=== PATIENT | male | born 1960 | race African-American/Black ===

== ENCOUNTER 2018-09-28 14:46 | Emergency (ER) | payer OTHER ==
[~2018-09-28] VITALS: Ht 172.7 cm; Wt 76.3 kg
[2018-09-28 15:06] LABS: BASOPHILS % (AUTO) 0.5 % (0.0-2.0); EOSINOPHILS % (AUTO) 0.6 % (1.0-6.0); HEMATOCRIT 39.8 % (41-53); HEMOGLOBIN 13.2 g/dL (13.5-17.5); LYMPHOCYTES # (AUTO) 1.1 K/uL (1.0-4.8); LYMPHOCYTES % (AUTO) 15.7 % (22.0-44.0); MEAN CORPUSCULAR HGB CONC 33.1 G/dL (31.0-37.0); MEAN CORPUSCULAR VOLUME 94 fL (80-100); MONOCYTES # (AUTO) 0.5 K/uL (0.1-1.0); MONOCYTES % (AUTO) 6.7 % (2.0-9.0); NEUTROPHILS # (AUTO) 5.6 K/uL (1.8-7.7); NEUTROPHILS % (AUTO) 76.5 % (40.0-70.0); PLATELET COUNT (AUTO) 235 K/uL (150-450); RED BLOOD CELL COUNT(AUTO) 4.25 MIL/uL (4.50-5.90); RED CELL DISTRIBUTION WIDTH 13.9 % (11.5-14.5)
[2018-09-28] MEDS ORDERED: ALTEPLASE PER STROKE PROTOCOL CLINICAL ONE (15:15)
[2018-09-28 15:16] LABS: INR 1.1 (0.9-1.1); PROTHROMBIN TIME 11.6 SEC (9.4-11.6)
[2018-09-28] MEDS ORDERED: CARB-102 PO (15:19)
[2018-09-28 15:24] LABS: CALCIUM, TOTAL 8.3 mg/dL (8.8-10.5); CREATININE 1.55 mg/dL (0.60-1.30); POTASSIUM 3.9 mmol/L (3.5-5.1)
[2018-09-28 15:26] LABS: ALBUMIN 3.3 g/dL (3.4-5.0); BILIRUBIN,TOTAL 0.5 mg/dL (0.1-1.0); TOTAL PROTEIN, SERUM 6.7 g/dL (6.4-8.2)
[2018-09-28] MEDS ORDERED: ALTEPLASE IV ONE ×2 (15:30)
[2018-09-28] MEDS ORDERED: WATER FOR INJECTION STERILE IV ONE ×2 (15:30)
[2018-09-28] MEDS ORDERED: ASPIRIN 81 MG CHEWABLE TABLET PO ONE (16:00)
[2018-09-28] MEDS ORDERED: IOVERSOL 350 MG/ML 100 ML VIAL ONE (16:58)
[2018-09-28] MEDS ORDERED: SODIUM CHLORIDE 0.9% 100 ML ONE (16:58)
[2018-09-28 17:10] VITALS: BP 148/80
== END 2018-09-28 17:15 | disposition short-term general hospital (02) ==
LOC: EMS 14:47
DX: G45.9 Transient cerebral ischemic attack, unspecified (principal)
CPT/HCPCS: 36415; 70450; 70496; 71045; 80053; 84484; 85025; 85610; 93005; 99291; J7050; Q9967; J2997

== ENCOUNTER 2023-12-05 11:32 | Emergency (ER) | payer OTHER ==
[~2023-12-05] VITALS: Ht 172.7 cm; Wt 89.9 kg
[~2023-12-05 11:32] MED LIST: CARB-102 PO
[2023-12-05 11:50] VITALS: TEMP 98.9
[2023-12-05] MEDS ORDERED: IOHEXOL 350 MG/ML 100 ML VIAL ONE (12:09)
[2023-12-05] MEDS ORDERED: SODIUM CHLORIDE 0.9% 100 ML ONE (12:09)
[2023-12-05] MEDS ORDERED: 0.9% SODIUM CHLORIDE 10 ML SYRINGE IVP ONE (12:09)
[2023-12-05 12:14] LABS: BASOPHILS % (AUTO) 0.7 % (0.0-2.0); EOSINOPHILS % (AUTO) 3.6 % (1.0-6.0); HEMATOCRIT 40.2 % (41-53); LYMPHOCYTES # (AUTO) 1.3 K/uL (1.0-4.8); LYMPHOCYTES % (AUTO) 20.2 % (22.0-44.0); MEAN CORPUSCULAR HGB CONC 32.4 G/dL (31.0-37.0); MEAN CORPUSCULAR VOLUME 96 fL (80-100); MONOCYTES # (AUTO) 0.5 K/uL (0.1-1.0); MONOCYTES % (AUTO) 8.3 % (2.0-9.0); NEUTROPHILS # (AUTO) 4.3 K/uL (1.8-7.7); NEUTROPHILS % (AUTO) 67.2 % (40.0-70.0); PLATELET COUNT (AUTO) 201 K/uL (150-450); RED BLOOD CELL COUNT(AUTO) 4.21 MIL/uL (4.50-5.90); WHITE BLOOD COUNT (AUTO) 6.3 K/uL (4.5-11.0)
[2023-12-05 12:25] LABS: ANION GAP 5 mmol/L (8-16); CARBON DIOXIDE 28 mmol/L (22-29); CHLORIDE 106 mmol/L (98-107); GLOMERULAR FILTR. RATE CALC > 60 mL/min (>60); GLUCOSE,RANDOM 114 mg/dL (70-110); INR 1.2 (0.9-1.1); PROTHROMBIN TIME 12.2 SEC (9.4-11.6); SODIUM SERUM 138 mmol/L (136-145); UREA NITROGEN, BLOOD 19 mg/dL (7-18)
[2023-12-05 12:32] LABS: ALANINE AMINOTRANSFERASE 10 U/L (12-78); ALBUMIN 3.1 g/dL (3.4-5.0); ALKALINE PHOSPHATASE 63 U/L (46-116); ASPARTATE AMINOTRANSFERASE 25 U/L (15-37); BILIRUBIN,TOTAL 0.5 mg/dL (0.1-1.0); HDL CHOLESTEROL 51 mg/dL (40-60); TOTAL PROTEIN, SERUM 6.8 g/dL (6.4-8.2); TRIGLYCERIDES 31 mg/dL (15-150)
[2023-12-05 12:33] LABS: TROPONIN I-HIGH SENSITIVITY 7 ng/L (<76)
[2023-12-05] MEDS: ASPIRIN 325 MG TABLET PO ONE (13:12)
[2023-12-05 13:52] LABS: CHOL/HDL RATIO 1.7 (4.2-7.3); CHOLESTEROL 88 mg/dL (131-200); LDL CHOL (CALC.) 31 mg/dL (0-130)
[2023-12-05 14:45] VITALS: BP 154/83; PULSE 76; RESP 16
== END 2023-12-05 15:05 | disposition short-term general hospital (02) ==
LOC: EMS 11:34
DX: G45.9 Transient cerebral ischemic attack, unspecified (principal); R41.82 Altered mental status, unspecified; G20.A1 Parkinson's disease without dyskinesia, without mention of fluctuations; R53.1 Weakness
CPT/HCPCS: 99291; 70496; 71045; 80061; 80053; 84484; 85025; 85610; 36415; 70498; 82948; 93005; 70450; Q9967; J7050

== ENCOUNTER 2024-10-24 13:24 | Inpatient (IN) | payer OTHER ==
[~2024-10-24] VITALS: Ht 177.8 cm; Wt 79.6 kg
[2024-10-24 13:28] VITALS: PULSE 89; RESP 20; O2SAT 98
[2024-10-24] MEDS ORDERED: PROPOFOL 1000 MG/ISO-OSM 100 ML ONE (13:30)
[2024-10-24] MEDS ORDERED: PHENYLEPHRINE HCL IN 0.9% NACL 400 MCG/10 ML SYRINGE IVP ONE (13:42)
[2024-10-24] MEDS ORDERED: NOREPINEPHRINE 8 MG/0.9 % NACL 250 ML IV ONE (13:42)
[2024-10-24] MEDS ORDERED: VASOPRESSIN 40 UNITS in DEXTROSE 5%-WATER 98 ML IV PRN (14:00)
[2024-10-24] MEDS ORDERED: PHENYLEPHRINE 200 MG/D5%-WATER 250 ML IV PRN (14:00)
[2024-10-24] MEDS: NOREPINEPHRINE 8 MG/0.9 % NACL 250 ML IV PRN (14:14)
[2024-10-24] MEDS: PROPOFOL 1000 MG/ISO-OSM 100 ML IV PRN (14:14)
[2024-10-24 14:18] LABS: BASOPHILS % (AUTO) 0.1 % (0.0-2.0); EOSINOPHILS % (AUTO) 0.9 % (1.0-6.0); HEMATOCRIT 40.1 % (41-53); HEMOGLOBIN 12.9 g/dL (13.5-17.5); LYMPHOCYTES # (AUTO) 3.2 K/uL (1.0-4.8); LYMPHOCYTES % (AUTO) 19.5 % (22.0-44.0); MEAN CORPUSCULAR HEMOGLOBIN 31.2 pg (26.0-34.0); MEAN CORPUSCULAR HGB CONC 32.3 G/dL (31.0-37.0); MEAN CORPUSCULAR VOLUME 97 fL (80-100); MONOCYTES # (AUTO) 0.3 K/uL (0.1-1.0); MONOCYTES % (AUTO) 1.6 % (2.0-9.0); NEUTROPHILS # (AUTO) 12.6 K/uL (1.8-7.7); NEUTROPHILS % (AUTO) 77.9 % (40.0-70.0); PLATELET COUNT (AUTO) 185 K/uL (150-450); RED BLOOD CELL COUNT(AUTO) 4.14 MIL/uL (4.50-5.90); RED CELL DISTRIBUTION WIDTH 14.6 % (11.5-14.5); WHITE BLOOD COUNT (AUTO) 16.2 K/uL (4.5-11.0)
[2024-10-24 14:28] LABS: ABG BASE EXCESS -10.6 mmol/L (-2.0-3.0); ABG HCO3 16.5 mmol/L (21.0-28.0); ABG PCO2 35 mmHg (32.0-48.0); ABG PH 7.279 (7.350-7.450); ALLEN TEST, BLOOD GAS Positive; SITE, BLOOD GAS LFT RADIAL; SOURCE, BLOOD GAS ARTERIAL
[2024-10-24 14:28] LABS: ANION GAP 10 mmol/L (8-16); CALCIUM, TOTAL 7.4 mg/dL (8.8-10.5); CARBON DIOXIDE 22 mmol/L (22-29); CHLORIDE 110 mmol/L (98-107); CREATININE 1.87 mg/dL (0.60-1.30); GLOMERULAR FILTR. RATE CALC 44 mL/min (>60); GLUCOSE,RANDOM 173 mg/dL (70-110); SODIUM SERUM 142 mmol/L (136-145); UREA NITROGEN, BLOOD 21 mg/dL (7-18)
[2024-10-24 14:29] LABS: ABG A-A DIFF O2 162.7 mmHg (10-20.0); ABG CARBOXYHEMOGLOBIN 0.6 % (0.5-1.5); ABG METHEMOGLOBIN 0.8 % (0.0-1.5); ABG OXYGEN CONTENT 20.5 mL/dL (15.0-23.0); ABG OXYGEN SATURATION 99.7 % (94.0-98.0); ABG OXYHEMOGLOBIN 98.3 % (94.0-98.0); ABG TOTAL HEMOGLOBIN 13.7 G/dL (13.5-17.5); O2 DEVICE,BLOOD GAS VENTILATOR (ROOM AIR); PEEP,BG 5 cm H2O; VT, ABG 450 ml
[2024-10-24 14:33] LABS: PROTHROMBIN TIME 12.5 SEC (9.4-11.6)
[2024-10-24 14:34] LABS: ALBUMIN 3.2 g/dL (3.4-5.0); BILIRUBIN,TOTAL 0.5 mg/dL (0.1-1.0); TOTAL PROTEIN, SERUM 6.2 g/dL (6.4-8.2)
[2024-10-24 14:36] LABS: TROPONIN I-HIGH SENSITIVITY 29 ng/L (<76)
[2024-10-24 14:42] LABS: BILIRUBIN,DIRECT 0.1 mg/dL (0.00-0.20)
[2024-10-24] MEDS: KETAMINE HCL 500 MG in DEXTROSE 5%-WATER 490 ML IV PRN (14:57)
[2024-10-24] MEDS: SODIUM BICARBONATE 100 MEQ in DEXTROSE 5%-0.45% SODIUM CHL 1,000 ML IV ONE (14:57)
[2024-10-24 15:00] LABS: ALCOHOL, URINE DRUG SCREEN NEGATIVE (NEGATIVE); AMPHET/METH SCREEN,URINE NEGATIVE (NEGATIVE); BARBITURATE SCREEN, URINE NEGATIVE (NEGATIVE); BENZODIAZEPINES SCREEN,URINE NEGATIVE (NEGATIVE); CANNABINOID SCREEN,URINE NEGATIVE (NEGATIVE); COCAINE SCREEN,URINE NEGATIVE (NEGATIVE); METHADONE SCREEN, URINE NEGATIVE (NEGATIVE); OPIATE SCREEN,URINE NEGATIVE (NEGATIVE); PHENCYCLIDINE SCREEN,URINE NEGATIVE (NEGATIVE)
[2024-10-24] MEDS ORDERED: MORPHINE SULFATE 2 MG/ML SYRINGE IVP PRN (15:30)
[2024-10-24] MEDS ORDERED: HYDROCODONE/ACETAMINOPHEN 5-325 MG TABLET PO PRN (15:30)
[2024-10-24] MEDS ORDERED: BISACODYL 10 MG RECTAL RECTAL SUPPOSITORY PR PRN (15:30)
[2024-10-24] MEDS ORDERED: ZOLPIDEM TARTRATE 5 MG TABLET PO PRN (15:30)
[2024-10-24] MEDS ORDERED: MAGNESIUM HYDROXIDE SUSPENSION 30 ML UDCUP PO PRN (15:30)
[2024-10-24] MEDS ORDERED: ONDANSETRON HCL 4 MG/2 ML VIAL IVP PRN (15:30)
[2024-10-24] MEDS: *CLINICAL-LEVOFLOXACIN IVPB DOSING CLINICAL ONE (15:33)
[2024-10-24 16:25] VITALS: PULSE 100; RESP 37; O2SAT 93
[2024-10-24] MEDS ORDERED: IOHEXOL 350 MG/ML 100 ML VIAL ONE (16:47)
[2024-10-24] MEDS ORDERED: 0.9% SODIUM CHLORIDE 10 ML SYRINGE IVP ONE (16:47)
[2024-10-24] MEDS ORDERED: SODIUM CHLORIDE 0.9% 100 ML ONE (16:48)
[2024-10-24] MEDS: LEVOFLOXACIN 750 MG/D5% WATER 150 ML IV SCH (17:47)
[2024-10-24] MEDS: HEPARIN SODIUM,PORCINE 5,000 UNITS/ML VIAL SQ SCH (17:47)
[2024-10-24 19:20] VITALS: PULSE 87; RESP 33; O2SAT 100
[2024-10-24 19:50] VITALS: PULSE 87; RESP 33; O2SAT 100
[2024-10-24] MEDS: DOCUSATE SODIUM 100 MG CAPSULE PO SCH (20:05)
[2024-10-24 22:20] VITALS: PULSE 75; RESP 32; O2SAT 100
[2024-10-25] VITALS (13 sets, daily range): BP systolic 100–145; BP diastolic 72–95; PULSE 76–87; RESP 21–34; TEMP 93.3–94.4; O2SAT 95–99
[2024-10-25 01:26] LABS: ALLEN TEST, BLOOD GAS Positive; SITE, BLOOD GAS RT RADIAL; TEMPERATURE, FAHRENHEIT, BG 93.7 FAHREN (96.0-98.6)
[2024-10-25 01:27] LABS: ABG BASE EXCESS 3.2 mmol/L (-2.0-3.0); ABG HCO3 22.1 mmol/L (21.0-28.0); ABG PCO2 34 mmHg (32.0-48.0); ABG PH 7.413 (7.350-7.450); ABG TOTAL HEMOGLOBIN 14.7 G/dL (13.5-17.5); PO2, ARTERIAL BG 66.2 mmHg (83.0-108.0)
[2024-10-25 01:28] LABS: ABG CARBOXYHEMOGLOBIN 0.7 % (0.5-1.5); ABG METHEMOGLOBIN 0.6 % (0.0-1.5); ABG OXYGEN CONTENT 19.5 mL/dL (15.0-23.0); ABG OXYHEMOGLOBIN 94.2 % (94.0-98.0)
[2024-10-25 01:29] LABS: ABG OXYGEN SATURATION 95.4 % (94.0-98.0); O2 DEVICE,BLOOD GAS VENT (ROOM AIR); PEEP,BG 5 cm H2O; VT, ABG 450 ml
[2024-10-25 01:32] LABS: SOURCE, BLOOD GAS ARTERIAL
[2024-10-25 02:03] LABS: ANION GAP 4 mmol/L (8-16); CALCIUM, TOTAL 7.2 mg/dL (8.8-10.5); CARBON DIOXIDE 26 mmol/L (22-29); CHLORIDE 109 mmol/L (98-107); CREATININE 1.01 mg/dL (0.60-1.30); GLOMERULAR FILTR. RATE CALC > 60 mL/min (>60); GLUCOSE,RANDOM 145 mg/dL (70-110); POTASSIUM 3.7 mmol/L (3.5-5.1); SODIUM SERUM 139 mmol/L (136-145); UREA NITROGEN, BLOOD 23 mg/dL (7-18)
[2024-10-25 02:08] LABS: ALANINE AMINOTRANSFERASE 43 U/L (12-78); ALKALINE PHOSPHATASE 103 U/L (46-116); ASPARTATE AMINOTRANSFERASE 148 U/L (15-37); BILIRUBIN,TOTAL 0.5 mg/dL (0.1-1.0); PHOSPHORUS 2.5 mg/dL (2.5-4.9)
[2024-10-25] MEDS: FentaNYL CIT 1000MCG/0.9% NACL 100 ML IV PRN (05:30)
[2024-10-25 05:54] LABS: BASOPHILS % (AUTO) 0.2 % (0.0-2.0); EOSINOPHILS % (AUTO) 0 % (1.0-6.0); HEMATOCRIT 41.6 % (41-53); HEMOGLOBIN 13.8 g/dL (13.5-17.5); LYMPHOCYTES # (AUTO) 0.3 K/uL (1.0-4.8); LYMPHOCYTES % (AUTO) 4.6 % (22.0-44.0); MEAN CORPUSCULAR HEMOGLOBIN 31.6 pg (26.0-34.0); MEAN CORPUSCULAR HGB CONC 33.2 G/dL (31.0-37.0); MEAN CORPUSCULAR VOLUME 95 fL (80-100); MONOCYTES # (AUTO) 0.3 K/uL (0.1-1.0); MONOCYTES % (AUTO) 4.8 % (2.0-9.0); NEUTROPHILS # (AUTO) 5.6 K/uL (1.8-7.7); RED BLOOD CELL COUNT(AUTO) 4.37 MIL/uL (4.50-5.90); RED CELL DISTRIBUTION WIDTH 15.1 % (11.5-14.5); WHITE BLOOD COUNT (AUTO) 6.2 K/uL (4.5-11.0)
[2024-10-25 06:05] LABS: ANION GAP 7 mmol/L (8-16); CALCIUM, TOTAL 7.5 mg/dL (8.8-10.5); CARBON DIOXIDE 28 mmol/L (22-29); CHLORIDE 106 mmol/L (98-107); CREATININE 1.13 mg/dL (0.60-1.30); GLOMERULAR FILTR. RATE CALC > 60 mL/min (>60); GLUCOSE,RANDOM 134 mg/dL (70-110); POTASSIUM 3.7 mmol/L (3.5-5.1); SODIUM SERUM 141 mmol/L (136-145); UREA NITROGEN, BLOOD 22 mg/dL (7-18)
[2024-10-25 06:09] LABS: NEUTROPHILS % (AUTO) 90.4 % (40.0-70.0)
[2024-10-25 06:17] LABS: TROPONIN I-HIGH SENSITIVITY 650 ng/L (<76)
[2024-10-25] MEDS: ACETAMINOPHEN 325 MG TABLET PO PRN (06:32)
[2024-10-25 08:14] LABS: ABG BASE EXCESS -1.9 mmol/L (-2.0-3.0); ABG PCO2 38 mmHg (32.0-48.0); ABG PH 7.401 (7.350-7.450); ABG TOTAL HEMOGLOBIN 14.5 G/dL (13.5-17.5); ALLEN TEST, BLOOD GAS Positive; PO2, ARTERIAL BG 78.3 mmHg (83.0-108.0); SITE, BLOOD GAS RT RADIAL; SOURCE, BLOOD GAS ARTERIAL; TEMPERATURE, FAHRENHEIT, BG 94.4 FAHREN (96.0-98.6)
[2024-10-25 08:15] LABS: ABG CARBOXYHEMOGLOBIN 0.5 % (0.5-1.5); ABG METHEMOGLOBIN 0.3 % (0.0-1.5); ABG OXYGEN CONTENT 19.6 mL/dL (15.0-23.0); ABG OXYGEN SATURATION 96.6 % (94.0-98.0); ABG OXYHEMOGLOBIN 95.8 % (94.0-98.0); O2 DEVICE,BLOOD GAS VENTILATOR (ROOM AIR); PEEP,BG 5 cm H2O; SPONTANEOUS VT, BG 423 ml; VT, ABG 450 ml
[2024-10-25 08:16] LABS: PLATELET COUNT (AUTO) 152 K/uL (150-450)
[2024-10-25 08:45] LABS: ALANINE AMINOTRANSFERASE 46 U/L (12-78); ALBUMIN 2.8 g/dL (3.4-5.0); ALKALINE PHOSPHATASE 100 U/L (46-116); ANION GAP 5 mmol/L (8-16); ASPARTATE AMINOTRANSFERASE 125 U/L (15-37); BILIRUBIN,TOTAL 0.5 mg/dL (0.1-1.0); CALCIUM, TOTAL 7.4 mg/dL (8.8-10.5); CARBON DIOXIDE 25 mmol/L (22-29); CHLORIDE 109 mmol/L (98-107); CREATININE 0.97 mg/dL (0.60-1.30); GLOMERULAR FILTR. RATE CALC > 60 mL/min (>60); GLUCOSE,RANDOM 123 mg/dL (70-110); PHOSPHORUS 2.4 mg/dL (2.5-4.9); POTASSIUM 3.7 mmol/L (3.5-5.1); SODIUM SERUM 139 mmol/L (136-145); UREA NITROGEN, BLOOD 21 mg/dL (7-18)
[2024-10-25] MEDS: ETHYL ALCOHOL 62% ANTISEPTIC NASAL SANITIZER 0.6 ML AMPUL NASAL SCH (09:04)
[2024-10-25] MEDS: PANTOPRAZOLE SODIUM 40 MG DR TABLET PO SCH (09:21)
[2024-10-25] MEDS ORDERED: DONE-52 PO (10:49)
[2024-10-25] MEDS ORDERED: LOVA20TA73 PO (10:49)
[2024-10-25] MEDS ORDERED: LEVO50 PO (10:49)
[2024-10-25] MEDS ORDERED: MIDO5TAB29 PO (10:49)
[2024-10-25] MEDS ORDERED: LEVE-71 PO (10:49)
[2024-10-25] MEDS ORDERED: DONE-51 PO (10:49)
[2024-10-25] MEDS ORDERED: CARB1CAP PO (10:49)
[2024-10-25] MEDS ORDERED: DROX200C2 PO (10:49)
[2024-10-25] MEDS ORDERED: SERT-158 PO (10:49)
[2024-10-25] MEDS ORDERED: OXCA300T70 PO (10:49)
[2024-10-25] MEDS ORDERED: SERT-162 PO (10:49)
[2024-10-25] MEDS ORDERED: MELO-107 PO (10:49)
[2024-10-25 12:02] LABS: PH, GASTRIC 3.5
[2024-10-25] MEDS ORDERED: SODIUM CHLORIDE 0.9% 1,000 ML ONE (12:02)
[2024-10-25 12:11] LABS: OCCULT BLOOD,GASTRIC FLUID POSITIVE (NEGATIVE)
[2024-10-25] MEDS ORDERED: PANTOPRAZOLE SODIUM 40 MG/VIAL IVP ONE (14:42)
[2024-10-25] MEDS: PANTOPRAZOLE SODIUM 40 MG/VIAL IVP SCH (14:53)
[2024-10-25 15:16] LABS: BASOPHILS % (AUTO) 0.2 % (0.0-2.0); EOSINOPHILS % (AUTO) 0.8 % (1.0-6.0); HEMATOCRIT 42.6 % (41-53); HEMOGLOBIN 14.3 g/dL (13.5-17.5); LYMPHOCYTES # (AUTO) 0.6 K/uL (1.0-4.8); LYMPHOCYTES % (AUTO) 9.9 % (22.0-44.0); MEAN CORPUSCULAR HEMOGLOBIN 31.7 pg (26.0-34.0); MEAN CORPUSCULAR HGB CONC 33.5 G/dL (31.0-37.0); MEAN CORPUSCULAR VOLUME 95 fL (80-100); MONOCYTES # (AUTO) 0.3 K/uL (0.1-1.0); MONOCYTES % (AUTO) 4.7 % (2.0-9.0); NEUTROPHILS # (AUTO) 4.8 K/uL (1.8-7.7); NEUTROPHILS % (AUTO) 84.4 % (40.0-70.0); PLATELET COUNT (AUTO) 139 K/uL (150-450); RED CELL DISTRIBUTION WIDTH 14.9 % (11.5-14.5); WHITE BLOOD COUNT (AUTO) 5.7 K/uL (4.5-11.0)
[2024-10-25] MEDS: LEVOFLOXACIN 750 MG/D5% WATER 150 ML IV SCH (15:24)
[2024-10-25 15:26] LABS: ALANINE AMINOTRANSFERASE 49 U/L (12-78); ALBUMIN 2.8 g/dL (3.4-5.0); ALKALINE PHOSPHATASE 101 U/L (46-116); ANION GAP 4 mmol/L (8-16); ASPARTATE AMINOTRANSFERASE 107 U/L (15-37); BILIRUBIN,TOTAL 0.5 mg/dL (0.1-1.0); CALCIUM, TOTAL 7.6 mg/dL (8.8-10.5); CARBON DIOXIDE 27 mmol/L (22-29); CHLORIDE 106 mmol/L (98-107); CREATININE 1.01 mg/dL (0.60-1.30); GLOMERULAR FILTR. RATE CALC > 60 mL/min (>60); GLUCOSE,RANDOM 112 mg/dL (70-110); PHOSPHORUS 2.9 mg/dL (2.5-4.9); POTASSIUM 4.1 mmol/L (3.5-5.1); SODIUM SERUM 137 mmol/L (136-145); UREA NITROGEN, BLOOD 21 mg/dL (7-18)
[2024-10-25 16:51] LABS: ABG PCO2 32 mmHg (32.0-48.0); ABG PH 7.454 (7.350-7.450); ALLEN TEST, BLOOD GAS POS; SITE, BLOOD GAS RT RADIAL; SOURCE, BLOOD GAS ARTERIAL; TEMPERATURE, FAHRENHEIT, BG 94.7 FAHREN (96.0-98.6)
[2024-10-25 16:52] LABS: ABG BASE EXCESS -2.2 mmol/L (-2.0-3.0); ABG CARBOXYHEMOGLOBIN 0.4 % (0.5-1.5); ABG HCO3 23.2 mmol/L (21.0-28.0); ABG METHEMOGLOBIN 0.3 % (0.0-1.5); ABG OXYHEMOGLOBIN 96.3 % (94.0-98.0); ABG TOTAL HEMOGLOBIN 14.1 G/dL (13.5-17.5); PO2, ARTERIAL BG 77.1 mmHg (83.0-108.0)
[2024-10-25 16:53] LABS: ABG OXYGEN CONTENT 19.2 mL/dL (15.0-23.0); O2 DEVICE,BLOOD GAS VENTILATOR (ROOM AIR)
[2024-10-25 16:54] LABS: PEEP,BG 5 cm H2O; VT, ABG 450 ml
[2024-10-25] MEDS: SODIUM CHLORIDE 0.9% 1,000 ML IV ONE (17:07)
[2024-10-25] MEDS: LevETIRAcetam 1,000 MG in DEXTROSE 5%-WATER 100 ML IV SCH (17:07)
[2024-10-25] MEDS ORDERED: CARB1TAB42 PO (17:43)
[2024-10-25] MEDS ORDERED: SODIUM CHLORIDE 0.9% 250 ML IV ONE (18:55)
[2024-10-25 20:38] LABS: ALANINE AMINOTRANSFERASE 50 U/L (12-78); ALKALINE PHOSPHATASE 96 U/L (46-116); ANION GAP 7 mmol/L (8-16); ASPARTATE AMINOTRANSFERASE 106 U/L (15-37); BILIRUBIN,TOTAL 0.5 mg/dL (0.1-1.0); CALCIUM, TOTAL 7.5 mg/dL (8.8-10.5); CARBON DIOXIDE 19 mmol/L (22-29); CHLORIDE 108 mmol/L (98-107); CREATININE 0.92 mg/dL (0.60-1.30); GLOMERULAR FILTR. RATE CALC > 60 mL/min (>60); GLUCOSE,RANDOM 98 mg/dL (70-110); POTASSIUM 4.5 mmol/L (3.5-5.1); SODIUM SERUM 134 mmol/L (136-145); TOTAL PROTEIN, SERUM 5.6 g/dL (6.4-8.2); UREA NITROGEN, BLOOD 19 mg/dL (7-18)
[2024-10-25 20:55] LABS: ALBUMIN 1.7 g/dL (3.4-5.0)
[2024-10-26] VITALS (13 sets, daily range): BP systolic 102–144; BP diastolic 60–110; PULSE 90–125; RESP 20–28; TEMP 95.1–99.2; O2SAT 95–100
[2024-10-26 00:01] LABS: ABG HCO3 22.4 mmol/L (21.0-28.0); ABG PCO2 39 mmHg (32.0-48.0); ABG PH 7.384 (7.350-7.450); ALLEN TEST, BLOOD GAS Positive; PO2, ARTERIAL BG 71.6 mmHg (83.0-108.0); SITE, BLOOD GAS RT RADIAL; SOURCE, BLOOD GAS ARTERIAL; TEMPERATURE, FAHRENHEIT, BG 93.8 FAHREN (96.0-98.6)
[2024-10-26 00:02] LABS: ABG A-A DIFF O2 208.1 mmHg (10-20.0); ABG BASE EXCESS -2.4 mmol/L (-2.0-3.0); ABG CARBOXYHEMOGLOBIN 0.4 % (0.5-1.5); ABG METHEMOGLOBIN 0.3 % (0.0-1.5); ABG OXYGEN CONTENT 18.4 mL/dL (15.0-23.0); ABG OXYGEN SATURATION 95.8 % (94.0-98.0); ABG OXYHEMOGLOBIN 94.1 % (94.0-98.0); ABG TOTAL HEMOGLOBIN 13.7 G/dL (13.5-17.5)
[2024-10-26 00:03] LABS: O2 DEVICE,BLOOD GAS VENT (ROOM AIR); PEEP,BG 5 cm H2O; VT, ABG 450 ml
[2024-10-26 02:38] LABS: BASOPHILS % (AUTO) 0.1 % (0.0-2.0); EOSINOPHILS % (AUTO) 1.2 % (1.0-6.0); HEMATOCRIT 42.8 % (41-53); HEMOGLOBIN 14.2 g/dL (13.5-17.5); LYMPHOCYTES # (AUTO) 0.3 K/uL (1.0-4.8); LYMPHOCYTES % (AUTO) 4.6 % (22.0-44.0); MEAN CORPUSCULAR HEMOGLOBIN 31.7 pg (26.0-34.0); MEAN CORPUSCULAR HGB CONC 33.3 G/dL (31.0-37.0); MEAN CORPUSCULAR VOLUME 95 fL (80-100); MONOCYTES # (AUTO) 0.2 K/uL (0.1-1.0); MONOCYTES % (AUTO) 3.8 % (2.0-9.0); NEUTROPHILS # (AUTO) 5.5 K/uL (1.8-7.7); PLATELET COUNT (AUTO) 133 K/uL (150-450); RED BLOOD CELL COUNT(AUTO) 4.49 MIL/uL (4.50-5.90); RED CELL DISTRIBUTION WIDTH 14.8 % (11.5-14.5); WHITE BLOOD COUNT (AUTO) 6.1 K/uL (4.5-11.0)
[2024-10-26 02:48] LABS: NEUTROPHILS % (AUTO) 90.3 % (40.0-70.0)
[2024-10-26 03:00] LABS: ALANINE AMINOTRANSFERASE 54 U/L (12-78); ALBUMIN 2.9 g/dL (3.4-5.0); ALKALINE PHOSPHATASE 107 U/L (46-116); ANION GAP 8 mmol/L (8-16); ASPARTATE AMINOTRANSFERASE 109 U/L (15-37); BILIRUBIN,TOTAL 0.6 mg/dL (0.1-1.0); CALCIUM, TOTAL 7.9 mg/dL (8.8-10.5); CARBON DIOXIDE 27 mmol/L (22-29); CHLORIDE 107 mmol/L (98-107); CREATININE 1.06 mg/dL (0.60-1.30); GLOMERULAR FILTR. RATE CALC > 60 mL/min (>60); GLUCOSE,RANDOM 101 mg/dL (70-110); POTASSIUM 4.1 mmol/L (3.5-5.1); SODIUM SERUM 142 mmol/L (136-145); TOTAL PROTEIN, SERUM 6.4 g/dL (6.4-8.2); UREA NITROGEN, BLOOD 19 mg/dL (7-18)
[2024-10-26 03:02] LABS: TROPONIN I-HIGH SENSITIVITY 303 ng/L (<76)
[2024-10-26 03:59] LABS: PROTHROMBIN TIME 13.8 SEC (9.4-11.6)
[2024-10-26 06:43] LABS: SITE, BLOOD GAS RT RADIAL
[2024-10-26 06:44] LABS: ABG PH 7.386 (7.350-7.450); ALLEN TEST, BLOOD GAS Positive; SOURCE, BLOOD GAS ARTERIAL; TEMPERATURE, FAHRENHEIT, BG 96.8 FAHREN (96.0-98.6)
[2024-10-26 06:45] LABS: ABG BASE EXCESS 0.3 mmol/L (-2.0-3.0); ABG HCO3 24.5 mmol/L (21.0-28.0); ABG PCO2 43 mmHg (32.0-48.0); ABG TOTAL HEMOGLOBIN 13.7 G/dL (13.5-17.5); PO2, ARTERIAL BG 83.5 mmHg (83.0-108.0)
[2024-10-26 06:46] LABS: ABG METHEMOGLOBIN 0.8 % (0.0-1.5); ABG OXYGEN CONTENT 18.4 mL/dL (15.0-23.0); ABG OXYHEMOGLOBIN 95.2 % (94.0-98.0)
[2024-10-26 06:47] LABS: ABG A-A DIFF O2 189.2 mmHg (10-20.0); ABG OXYGEN SATURATION 96.6 % (94.0-98.0); O2 DEVICE,BLOOD GAS VENT (ROOM AIR)
[2024-10-26 06:48] LABS: PEEP,BG 5 cm H2O; VT, ABG 450 ml
[2024-10-26 08:39] LABS: ALANINE AMINOTRANSFERASE 55 U/L (12-78); ALBUMIN 2.7 g/dL (3.4-5.0); ALKALINE PHOSPHATASE 101 U/L (46-116); ANION GAP 4 mmol/L (8-16); ASPARTATE AMINOTRANSFERASE 107 U/L (15-37); BILIRUBIN,TOTAL 0.4 mg/dL (0.1-1.0); CALCIUM, TOTAL 7.9 mg/dL (8.8-10.5); CARBON DIOXIDE 28 mmol/L (22-29); CHLORIDE 108 mmol/L (98-107); CREATININE 1.15 mg/dL (0.60-1.30); GLOMERULAR FILTR. RATE CALC > 60 mL/min (>60); GLUCOSE,RANDOM 98 mg/dL (70-110); POTASSIUM 4.2 mmol/L (3.5-5.1); SODIUM SERUM 140 mmol/L (136-145); TOTAL PROTEIN, SERUM 6.3 g/dL (6.4-8.2); UREA NITROGEN, BLOOD 19 mg/dL (7-18)
[2024-10-26 08:54] LABS: ALLEN TEST, BLOOD GAS Positive; SITE, BLOOD GAS RT RADIAL; SOURCE, BLOOD GAS ARTERIAL; TEMPERATURE, FAHRENHEIT, BG 98.7 FAHREN (96.0-98.6)
[2024-10-26 08:55] LABS: ABG BASE EXCESS -2.1 mmol/L (-2.0-3.0); ABG PCO2 39 mmHg (32.0-48.0); ABG TOTAL HEMOGLOBIN 13.4 G/dL (13.5-17.5); PO2, ARTERIAL BG 100.4 mmHg (83.0-108.0)
[2024-10-26 08:56] LABS: ABG CARBOXYHEMOGLOBIN 0.3 % (0.5-1.5); ABG OXYGEN CONTENT 18.4 mL/dL (15.0-23.0); ABG OXYGEN SATURATION 97.4 % (94.0-98.0); ABG OXYHEMOGLOBIN 97.1 % (94.0-98.0)
[2024-10-26 08:57] LABS: O2 DEVICE,BLOOD GAS VENTILATOR (ROOM AIR); PEEP,BG 5 cm H2O; VT, ABG 450 ml
[2024-10-26] MEDS: MIDODRINE HCL 5 MG TABLET PO SCH (11:19)
[2024-10-26] MEDS: DEXMEDETOMIDINE 400 MCG/NS 100 ML IV PRN (14:39)
[2024-10-26 15:04] LABS: ABG PCO2 37 mmHg (32.0-48.0); ABG PH 7.404 (7.350-7.450); ALLEN TEST, BLOOD GAS Positive; PO2, ARTERIAL BG 80.2 mmHg (83.0-108.0); SITE, BLOOD GAS RT RADIAL; SOURCE, BLOOD GAS ARTERIAL; TEMPERATURE, FAHRENHEIT, BG 99.5 FAHREN (96.0-98.6)
[2024-10-26 15:05] LABS: ABG A-A DIFF O2 198.1 mmHg (10-20.0); ABG BASE EXCESS -2.2 mmol/L (-2.0-3.0); ABG CARBOXYHEMOGLOBIN 0.3 % (0.5-1.5); ABG METHEMOGLOBIN 0.1 % (0.0-1.5); ABG OXYGEN CONTENT 18.1 mL/dL (15.0-23.0); ABG OXYGEN SATURATION 95.4 % (94.0-98.0); ABG TOTAL HEMOGLOBIN 13.5 G/dL (13.5-17.5); O2 DEVICE,BLOOD GAS VENTILATOR (ROOM AIR); PEEP,BG 5 cm H2O; VT, ABG 450 ml
[2024-10-30 09:37] LABS: CANDIDA AURIS PCR,SURVEILLANCE Not Detected C(t) (Not Detectd)
== END 2024-10-26 22:00 | disposition short-term general hospital (02) | DRG 208 ==
LOC: EMS 13:24 → EDH 15:23 → ICU 10-25 02:10
PROVIDERS: ADMIT Internal Medicine; ATTEND Internal Medicine
PROC: 5A1945Z Respiratory Ventilation, 24-96 Consecutive Hours (ICD-10-PCS; principal; 2024-10-24)
PROC: 0BH17EZ Insertion of Endotracheal Airway into Trachea, Via Natural or Artificial Opening (ICD-10-PCS; 2024-10-24)
DX: J96.01 Acute respiratory failure with hypoxia (principal); I46.9 Cardiac arrest, cause unspecified; I49.01 Ventricular fibrillation; N17.9 Acute kidney failure, unspecified; G93.1 Anoxic brain damage, not elsewhere classified; R65.10 Systemic inflammatory response syndrome (SIRS) of non-infectious origin without acute organ dysfunction; E03.9 Hypothyroidism, unspecified; G20.A1 Parkinson's disease without dyskinesia, without mention of fluctuations; G40.909 Epilepsy, unspecified, not intractable, without status epilepticus; F02.80 Dementia in other diseases classified elsewhere, unspecified severity, without behavioral disturbance, psychotic disturbance, mood disturbance, and anxiety; E78.5 Hyperlipidemia, unspecified; I95.9 Hypotension, unspecified; Z86.73 Personal history of transient ischemic attack (TIA), and cerebral infarction without residual deficits; Z96.653 Presence of artificial knee joint, bilateral
CPT/HCPCS: 31500; 70450; 71045; 71250; 71275; 80048; 80053; 80076; 80307; 82271; 82805; 83615; 83735; 83880; 84100; 84484; 85025; 85610; 85730; 87040; 87070; 87081; 87205; 87481; 93005; 93306; 93970; 94002; 94003; 96365; 96367; 99291; J0712; J1644; J1956; J2370; J2470; J2704; J3010; J3490; J7030; J7050; J7060; 36415-L1; 36415-TC